=== PATIENT | female | born 2000 | race American Indian/Alaskan Native ===

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

== ENCOUNTER 2022-01-21 09:28 | Emergency (ER) | payer MEDICAID ==
[2022-01-21 09:56] VITALS: BP 105/52
== END 2022-01-21 11:00 | disposition left against medical advice (07) ==
LOC: ED 09:28
DX: L08.9 Local infection of the skin and subcutaneous tissue, unspecified (principal); M79.89 Other specified soft tissue disorders; Z53.21 Procedure and treatment not carried out due to patient leaving prior to being seen by health care provider